=== PATIENT | female | born 1985 | race Caucasian/White ===

== ENCOUNTER 2017-10-31 15:41 | Emergency (ER) | payer MEDICAID ==
[~2017-10-31] VITALS: Ht 167.6 cm; Wt 80.0 kg
[~2017-10-31 15:41] MED LIST: IBUP-232 PO; OXYC1TAB63 PO
[2017-10-31 15:47] VITALS: BP 111/70; PULSE 141; RESP 20; TEMP 97.2; O2SAT 98
--- NOTE | 2017-10-31 16:46 | RADRPT ---
EXAM DATE/TIME: 10/31/2017 16:34 [facility] COMPARISON: No previous studies available for comparison. INDICATIONS : Chest tightness. MEDICAL HISTORY : None. SURGICAL HISTORY : None. ENCOUNTER: Initial ACUITY: 1 day PAIN SCORE: 0/10 LOCATION: Bilateral chest FINDINGS: A single view of the chest demonstrates the lungs to be symmetrically aerated without evidence of mas s, infiltrate or effusion. The cardiomediastinal contours are unremarkable. Osseous structures are intact. CONCLUSION: No acute disease. Nando Mendez MD on October 31, 2017 at 16:44 Board Certified Radiologist. This report was verified electronically.
[2017-10-31 16:47] VITALS: O2SAT 100
[2017-10-31 16:53] LABS: AUTOMATED NEUTROPHIL # 13.5 TH/MM3 (1.8-7.7); BASOPHIL # 0.1 TH/MM3 (0-0.2); BASOPHIL % 0.3 % (0.0-2.0); EOSINOPHIL # 0.2 TH/MM3 (0-0.4); EOSINOPHIL % 0.9 % (0.0-4.0); HEMATOCRIT 35.7 % (35.0-46.0); HEMOGLOBIN 11.6 GM/DL (11.6-15.3); LYMPH % 10.6 % (9.0-44.0); LYMPHOCYTE # 1.7 TH/MM3 (1.0-4.8); MEAN CELL VOLUME 75.4 FL (80.0-100.0); MEAN CORPUSCULAR HEMOGLOBIN 24.5 PG (27.0-34.0); MEAN CORPUSCULAR HGB CONC 32.4 % (32.0-36.0); MEAN PLATELET VOLUME 8.3 FL (7.0-11.0); MONO % 6.5 % (0.0-8.0); MONOCYTE # 1.1 TH/MM3 (0-0.9); NEUT % 81.7 % (16.0-70.0); PLATELET COUNT 499 TH/MM3 (150-450); RED BLOOD COUNT 4.73 MIL/MM3 (4.00-5.30); RED CELL DISTRIBUTION WIDTH 17.1 % (11.6-17.2); WHITE BLOOD COUNT 16.5 TH/MM3 (4.0-11.0)
[2017-10-31] MEDS ORDERED: SODIUM CHLORIDE 0.9% FLUSH 10 ML FLUSH IVF PRN (17:00)
[2017-10-31] MEDS ORDERED: SODIUM CHLOR 0.9% 1000 ML INJ 1,000 ML IV ONE ×2 (17:00→20:45)
[2017-10-31] MEDS ORDERED: RESP: ALBUTEROL 2.5 MG/IPRATROPIUM 0.5 MG NEB (SCH) INH ONE (17:00)
[2017-10-31 17:16] LABS: BICARBONATE 22.8 MEQ/L (21.0-32.0); BLOOD UREA NITROGEN 9 MG/DL (7-18); CALCIUM 9.4 MG/DL (8.5-10.1); CHLORIDE 100 MEQ/L (98-107); CREATININE 0.63 MG/DL (0.50-1.00); GLOMERULAR FILTRATION RATE 110 ML/MIN (>89); GLUCOSE,RANDOM 82 MG/DL (74-106); SODIUM (NA) 133 MEQ/L (136-145)
--- NOTE | 2017-10-31 17:23 | PD ---
HPI Chief Complaint: Cardiac Complaint Time Seen by Provider: 16:42 Travel History International Travel<30 days: No Contact w/Intl Traveler<30days: No Traveled to known affect area: No History of Present Illness HPI 32y female, 30 weeks gravid presents to the emergency department at the request of her etcher enameling from the floor with a sudden onset of shortness of breath and chest tightness that started 3 hours ago. Patient states it feels like a "corset" and she is having difficulty breathing. States no palliative or provocative factors. Says she has associated lightheadedness with her symptoms. Says that she started feeling "hot" while in the waiting room today but denies fevers. She denies cough, congestion or sick contacts. Says that she does have nausea from but she has been more nauseous over the last couple of days in combination with having heartburn. Says she has a history of migraines but has not had a migraine for a while. Denies vaginal bleeding or discharge. Patient does not take any medications or supplements. Denies chronic medical issues. No sick contacts. Says she went to [facility] Friday for feeling "fatigued" where they thought that she may be developing infection. States that she had elevated white blood cells and low potassium and sodium. PFSH Past Medical History Anemia: Yes Anxiety: Yes Depression: Yes Diminished Hearing: No Headaches: Yes Immunizations Current: Yes Migraines: Yes Thyroid Disease: Yes (HYPO) ?: LMP: UNKNOWN : 2 Para: 2 Miscarriage: 0 : 0 Social History Alcohol Use: No Tobacco Use: No Substance Use: No Allergies-Medications (Allergen,Severity, Reaction): Coded Allergies: acetaminophen (Unverified Adverse Reaction, Severe, Nausea/Vomiting, ) hydrocodone (Unverified Adverse Reaction, Severe, Nausea/Vomiting, 10/31/17 ) Reported Meds & Prescriptions Reported Meds & Active Scripts Active No Active Prescriptions or Reported Medications Review of Systems Except as stated in HPI: all other systems reviewed are Neg Physical Exam Narrative GENERAL: Well-developed, well-nourished in mild distress SKIN: Focused skin assessment warm/dry. HEAD: Atraumatic. Normocephalic. EYES: Pupils equal and round. No scleral icterus. No injection or drainage. ENT: No nasal bleeding or discharge. Mucous membranes pink and moist. NECK: Trachea midline. No JVD. CARDIOVASCULAR: Regular rate and rhythm. No murmur appreciated. RESPIRATORY: No accessory muscle use. Clear to auscultation. Breath sounds equal bilaterally. GASTROINTESTINAL: Abdomen gravid. Nontender no CVA tenderness MUSCULOSKELETAL: No obvious deformities. No clubbing. No cyanosis. No edema. Homans sign negative bilaterally NEUROLOGICAL: Awake and alert. No obvious cranial nerve deficits. Motor grossly within normal limits. Normal speech. PSYCHIATRIC: Appropriate mood and affect; insight and judgment normal. Data Data Last Documented VS Vital Signs Date Time Temp Pulse Resp B/P (MAP) Pulse Ox O2 Delivery O2 Flow Rate FiO2 10/31/17 21:32 96 16 111/62 (78) 100 Room Air 10/31/17 15:47 97.2 Orders Orders Electrocardiogram (10/31/17 16:05) Complete Blood Count With Diff (10/31/17 16:05) Basic Metabolic Panel (Bmp) (10/31/17 16:05) Ckmb (Isoenzyme) Profile (10/31/17 16:05) Troponin I (10/31/17 16:05) Chest, Single Ap (10/31/17 16:05) Iv Access Insert/Monitor (10/31/17 16:05) Ecg Monitoring (10/31/17 16:05) Oximetry (10/31/17 16:05) Beta Hcg (Quant/Titer) (10/31/17 16:05) Ed Urine Pregnancytest Poc (10/31/17 16:05) Sodium Chlor 0.9% 1000 Ml Inj (Ns 1000 M (10/31/17 17:00) Urinalysis - C+S If Indicated (10/31/17 16:51) Influenzae A/B Antigen (10/31/17 16:51) Sodium Chloride 0.9% Flush (Ns Flush) (10/31/17 17:00) Albuterol-Ipratropium Neb (Duoneb Neb) (10/31/17 17:00) Act Partial Throm Time (Ptt) (10/31/17 17:21) Prothrombin Time / Inr (Pt) (10/31/17 17:21) Lung Scan - Perfusion (10/31/17 ) Ed Discharge Order (10/31/17 20:15) Sodium Chlor 0.9% 1000 Ml Inj (Ns 1000 M (10/31/17 20:45) Attending Discharge Order (10/31/17 ) Labs Laboratory Tests Test 10/31/17 16:20 10/31/17 17:30 White Blood Count 16.5 TH/MM3 Red Blood Count 4.73 MIL/MM3 Hemoglobin 11.6 GM/DL Hematocrit 35.7 % Mean Corpuscular Volume 75.4 FL Mean Corpuscular Hemoglobin 24.5 PG Mean Corpuscular Hemoglobin Concent 32.4 % Red Cell Distribution Width 17.1 % Platelet Count 499 TH/MM3 Mean Platelet Volume 8.3 FL Neutrophils (%) (Auto) 81.7 % Lymphocytes (%) (Auto) 10.6 % Monocytes (%) (Auto) 6.5 % Eosinophils (%) (Auto) 0.9 % Basophils (%) (Auto) 0.3 % Neutrophils # (Auto) 13.5 TH/MM3 Lymphocytes # (Auto) 1.7 TH/MM3 Monocytes # (Auto) 1.1 TH/MM3 Eosinophils # (Auto) 0.2 TH/MM3 Basophils # (Auto) 0.1 TH/MM3 CBC Comment DIFF FINAL Differential Comment Urine Color YELLOW Urine Turbidity CLEAR Urine pH 6.5 Urine Specific [place] 1.020 Urine Protein TRACE mg/dL Urine Glucose (UA) NEG mg/dL Urine Ketones NEG mg/dL Urine Occult Blood NEG Urine Nitrite NEG Urine Bilirubin NEG Urine Urobilinogen LESS THAN 2.0 MG/DL Urine Leukocyte Esterase TRACE Urine WBC 1 /hpf Urine Squamous Epithelial Cells 8 /hpf Urine Bacteria OCC /hpf Urine Mucus FEW /lpf Microscopic Urinalysis Comment CULT NOT INDICATED Blood Urea Nitrogen 9 MG/DL Creatinine 0.63 MG/DL Random Glucose 82 MG/DL Calcium Level 9.4 MG/DL Sodium Level 133 MEQ/L Potassium Level 3.6 MEQ/L Chloride Level 100 MEQ/L Carbon Dioxide Level 22.8 MEQ/L Anion Gap 10 MEQ/L Estimat Glomerular Filtration Rate 110 ML/MIN Total Creatine Kinase 26 U/L Troponin I LESS THAN 0.02 NG/ML Human Chorionic Gonadotropin, Quant 90975 MIU/ML Prothrombin Time 10.2 SEC Prothromb Time International Ratio 1.0 RATIO Activated Partial Thromboplast Time 23.0 SEC MDM Medical Decision Making Medical Screen Exam Complete: Yes Emergency Medical Condition: Yes Differential Diagnosis Pulmonary embolism, pneumonia, asthma, bronchitis Narrative Course 32y female, 30 weeks gravid presents to the emergency department at the request of her etcher enameling from the floor with a sudden onset of shortness of breath and chest tightness that started 3 hours ago. Patient states it feels like a "corset" and she is having difficulty breathing. States no palliative or provocative factors. Says she has associated lightheadedness with her symptoms. Says that she started feeling "hot" while in the waiting room today but denies fevers. She denies cough, congestion or sick contacts. Says that she does have nausea from but she has been more nauseous over the last couple of days in combination with having heartburn. Says she has a history of migraines but has not had a migraine for a while. Denies vaginal bleeding or discharge. Patient does not take any medications or supplements. Denies chronic medical issues. No sick contacts. Says she went to [facility] Friday for feeling "fatigued" where they thought that she may be developing infection. States that she had elevated white blood cells and low potassium and sodium. EKG shows sinus tachycardia, ID interval .100 Labs and imaging studies ordered. 1L NS IVF administered. DuoNeb 1 administered. Minimal relief after treatment. I discussed with my attending the treatment plan. Although the final disposition will be with the oncoming physician, we believe that if the VQ is of low probability, she is safe to be discharged home. If intermittent, consider CT pulmonary angiogram. If high probability, will treat. VQ pending as of transfer of care to Dr. Chatterjee. Scripts No Active Prescriptions or Reported Meds Condition: Stable Deisi Delgado Oct 31, 2017 17:23
[2017-10-31 17:31] VITALS: BP 103/71; PULSE 102; RESP 18; O2SAT 100
[2017-10-31 17:32] LABS: TROPONIN I LESS THAN 0.02 NG/ML (0.02-0.05)
[2017-10-31 17:58] LABS: BACTERIA, URINE OCC /hpf; BILIRUBIN, URINE NEG (NEG); BLOOD, URINE NEG (NEG); GLUCOSE,URINE NEG (NEG); KETONE, URINE NEG (NEG); MUCUS URINE FEW /lpf (OCC); NITRITE,URINE NEG (NEG); PH, URINE 6.5 (5.0-8.5); SQUAMOUS EPITHELIAL CELL URINE 8 /hpf (0-5); URINE COLOR YELLOW (YELLW/STRAW); URINE LEUKOCYTE ESTERASE TRACE (NEG)
[2017-10-31 18:12] LABS: PROTHROMBIN TIME - PATIENT 10.2 SEC (9.8-11.6)
--- NOTE | 2017-10-31 19:48 | RADRPT ---
EXAM DATE/TIME: 10/31/2017 18:57 [facility] COMPARISON: No previous studies available for comparison. INDICATIONS : Chest pain with dyspnea. DOSE: 1.1 mCi Tc99m Labeled MAA IV MEDICAL HISTORY : Hypothyroidism. SURGICAL HISTORY : None. ENCOUNTER: Initial ACUITY: 1 day PAIN SCALE: 3/10 LOCATION: chest TECHNIQUE: The patient was injected with MAA, and eight-view perfusion scan was performed. patient. Pat ient was counseled prior to the study and all questions answered. Only perfusion was done and that olvera lf the dose. FINDINGS: PERFUSION: There is a homogenous pattern of radiotracer uptake throughout both lungs. CONCLUSION: Normal pulmonary perfusion. Tay Sullivan MD on October 31, 2017 at 19:46 Board Certified Radiologist. This report was verified electronically.
--- NOTE | 2017-10-31 20:20 | PD ---
Physical Exam Narrative Patient was signed out to me by EDWARD Delgado and Dr. Mederos. Please see there documentation for complete details. Briefly, patient is a 32 year old female, 30 weeks , who comes in complaining of chest tightness and SOB. She is also experiencing some abdominal discomfort. She denies any bleeding or leakage of fluids. She says she has been feeling a little worn out this week, but hasn't had any other specific symptoms. She says she experienced SOB in her prior as her abdomen got bigger, but this seems to be worse. Exam shows lungs CTA. Heart is RRR. Data Data Last Documented VS Vital Signs Date Time Temp Pulse Resp B/P (MAP) Pulse Ox O2 Delivery O2 Flow Rate FiO2 10/31/17 17:31 102 18 103/71 (82) 100 Room Air 10/31/17 15:47 97.2 Orders Orders Electrocardiogram (10/31/17 16:05) Complete Blood Count With Diff (10/31/17 16:05) Basic Metabolic Panel (Bmp) (10/31/17 16:05) Ckmb (Isoenzyme) Profile (10/31/17 16:05) Troponin I (10/31/17 16:05) Chest, Single Ap (10/31/17 16:05) Iv Access Insert/Monitor (10/31/17 16:05) Ecg Monitoring (10/31/17 16:05) Oximetry (10/31/17 16:05) Beta Hcg (Quant/Titer) (10/31/17 16:05) Ed Urine Pregnancytest Poc (10/31/17 16:05) Sodium Chlor 0.9% 1000 Ml Inj (Ns 1000 M (10/31/17 17:00) Urinalysis - C+S If Indicated (10/31/17 16:51) Influenzae A/B Antigen (10/31/17 16:51) Sodium Chloride 0.9% Flush (Ns Flush) (10/31/17 17:00) Albuterol-Ipratropium Neb (Duoneb Neb) (10/31/17 17:00) Act Partial Throm Time (Ptt) (10/31/17 17:21) Prothrombin Time / Inr (Pt) (10/31/17 17:21) Lung Scan - Perfusion (10/31/17 ) Ed Discharge Order (10/31/17 20:15) Labs Laboratory Tests Test 10/31/17 16:20 10/31/17 17:30 White Blood Count 16.5 TH/MM3 Red Blood Count 4.73 MIL/MM3 Hemoglobin 11.6 GM/DL Hematocrit 35.7 % Mean Corpuscular Volume 75.4 FL Mean Corpuscular Hemoglobin 24.5 PG Mean Corpuscular Hemoglobin Concent 32.4 % Red Cell Distribution Width 17.1 % Platelet Count 499 TH/MM3 Mean Platelet Volume 8.3 FL Neutrophils (%) (Auto) 81.7 % Lymphocytes (%) (Auto) 10.6 % Monocytes (%) (Auto) 6.5 % Eosinophils (%) (Auto) 0.9 % Basophils (%) (Auto) 0.3 % Neutrophils # (Auto) 13.5 TH/MM3 Lymphocytes # (Auto) 1.7 TH/MM3 Monocytes # (Auto) 1.1 TH/MM3 Eosinophils # (Auto) 0.2 TH/MM3 Basophils # (Auto) 0.1 TH/MM3 CBC Comment DIFF FINAL Differential Comment Urine Color YELLOW Urine Turbidity CLEAR Urine pH 6.5 Urine Specific [place] 1.020 Urine Protein TRACE mg/dL Urine Glucose (UA) NEG mg/dL Urine Ketones NEG mg/dL Urine Occult Blood NEG Urine Nitrite NEG Urine Bilirubin NEG Urine Urobilinogen LESS THAN 2.0 MG/DL Urine Leukocyte Esterase TRACE Urine WBC 1 /hpf Urine Squamous Epithelial Cells 8 /hpf Urine Bacteria OCC /hpf Urine Mucus FEW /lpf Microscopic Urinalysis Comment CULT NOT INDICATED Blood Urea Nitrogen 9 MG/DL Creatinine 0.63 MG/DL Random Glucose 82 MG/DL Calcium Level 9.4 MG/DL Sodium Level 133 MEQ/L Potassium Level 3.6 MEQ/L Chloride Level 100 MEQ/L Carbon Dioxide Level 22.8 MEQ/L Anion Gap 10 MEQ/L Estimat Glomerular Filtration Rate 110 ML/MIN Total Creatine Kinase 26 U/L Troponin I LESS THAN 0.02 NG/ML Human Chorionic Gonadotropin, Quant 21370 MIU/ML Prothrombin Time 10.2 SEC Prothromb Time International Ratio 1.0 RATIO Activated Partial Thromboplast Time 23.0 SEC [facility] Supervised Visit with RODGER: No Narrative Course Labs show an elevated WBC count, likely due to the itself. Other labs are within normal limits. CXR shows no acute abnormalities. V/Q scan is low probability for PE. Last 24 hours Impressions Chest X-Ray 10/31/17 1605 Signed Impressions: Service Date/Time: Tuesday, October 31, 2017 16:34 - CONCLUSION: No acute disease. Nando Mendez MD Lung Scan Nuclear Medicine 10/31/17 0000 Signed Impressions: Service Date/Time: Tuesday, October 31, 2017 18:57 - CONCLUSION: Normal pulmonary perfusion. Tay Sullivan MD Patient will be discharged and sent to OB triage for evaluation of the . Advised to follow up with her doctors and return as needed for any worsening symptoms. Diagnosis Primary Impression: SOB (shortness of breath) Patient Instructions: General Instructions, Shortness of Breath (ED) Additional Instruction: Follow-up with OB. Return anytime for any worsening symptoms. Make sure you drink plenty of fluids and rest. Take Tylenol as needed for pain. Scripts No Active Prescriptions or Reported Meds Disposition: 01 DISCHARGE HOME Condition: Stable Valeria Chatterjee MD Oct 31, 2017 20:20
[2017-10-31 20:40] VITALS: BP 89/51; PULSE 101; RESP 16; O2SAT 100
[2017-10-31 21:32] VITALS: BP 111/62; PULSE 96; RESP 16; O2SAT 100
--- NOTE | 2017-10-31 22:58 | PD ---
HPI Chief Complaint Chest tightness, shortness of breath Date Seen: Oct 31, 2017 Time Seen: 22:50 Travel History International Travel<30 Days: No Contact w/Intl Traveler<30Days: No Known Affected Area: No History of Present Illness HPI Patient is 32-year-old white female at [address] Clemens for care and presents complaining of chest tightness and shortness of breath she felt that she "could not catch her breath". She had no obstetric complaint baby is active no bleeding, leakage of fluid, or significant abdominal pain. She states she was having this chest discomfort for 2 hours at home and ingested would not get better so she came to the hospital and she has been down in the emergency room all afternoon and evening getting her workup done. She has had a negative VQ scan, and negative workup for TN, all other testing was within normal limits and she has been sent to OB ED to have monitoring Weeks Gestation: 29 Para: 3 : 4 History Obstetric History Obstetric History 3 vaginal deliveries in the past Social History Alcohol Use: No Tobacco Use: No Substance Abuse: No Allergies-Medications (Allergen,Severity, Reaction): Coded Allergies: acetaminophen (Unverified Adverse Reaction, Severe, Nausea/Vomiting, ) hydrocodone (Unverified Adverse Reaction, Severe, Nausea/Vomiting, 10/31/17 ) Home Meds Discontinued Scripts Oxycodone-Acetaminophen (Oxycodone-Acetaminophen) 5-325 mg Tab, 1 TAB PO Q4H for moderate pain, #12 TAB Prov:Ashlee Clemens MD 07/11/16 Ibuprofen (Ibuprofen) 600 Mg Tab, 600 MG PO Q6H for Pain Management, #30 TAB 1 Refill Prov:Ashlee Clemens MD 07/11/16 Review of Systems General / Constitutional: No: Fever, Weight Gain, Chills, Other Eyes: No: Diploplia, Blurred Vision, Visual changes, Pain, Photophobia HENT: No: Headaches, Vertigo, Lightheadedness Cardiovascular: Chest Pain or Discomfort, No: Irregular Rhythm, Palpitations, Tachycardia, Syncope, Varicosities, Edema, Cyanosis Respiratory: Short of Breath, No: Cough, Other Gastrointestinal: No: Nausea, Vomiting, Diarrhea Genitourinary: No: Decreased Urinary Output, Oliguria Musculoskeletal: No: Limited ROM, Weakness, Cramping, Edema, Pain Skin: No Rash, No Itching, No Dryness, No Lumps, No Change in Pigmentation, No Change in Nails, No Alopecia, No Lesions Neurologic: No: Weakness, Dizziness, Syncope, Focal Abnormalities, Coordination Problem, Headache, Slurred Speech, Seizures Psychiatric: No: Depression, Suicidal Ideations, Homicidal Ideation Endocrine: No: Heat Intolerance, Cold Intolerance, Polydipsia, Polyuria, Other Physical Exam Vital Signs Date Time Temp Pulse Resp B/P (MAP) Pulse Ox O2 Delivery O2 Flow Rate FiO2 10/31/17 21:32 96 16 111/62 (78) 100 Room Air 10/31/17 20:40 101 16 89/51 (64) 100 Room Air 10/31/17 20:22 10/31/17 17:31 102 18 103/71 (82) 100 Room Air 10/31/17 16:49 100 Room Air 10/31/17 16:47 100 Room Air 10/31/17 16:47 100 Room Air 10/31/17 15:47 97.2 141 20 111/70 (84) 98 Narrative GENERAL: Well-nourished, well-developed patient. SKIN: Warm and dry. HEAD: Normocephalic and atraumatic. EYES: No scleral icterus. No injection or drainage. ENT: No nasal drainage noted. Mucous membranes pink. Airway patent. NECK: Supple, trachea midline. No JVD. CARDIOVASCULAR: Regular rate and rhythm without murmurs, gallops, or rubs. RESPIRATORY: Breath sounds equal bilaterally. No accessory muscle use. BREASTS: Bilateral exam showed no masses , no retractions, no nipple discharge. ABDOMEN/GI: Abdomen soft, non-tender, bowel sounds present, no rebound, no guarding Gravid to [29-] weeks size Fundal Height: [29-] GENITOURINARY: Membranes: [intact Uterine Contractions: [none-] FHT's: Category: [-1] Baseline: [-133] Reactive: [R-] Variability: [-mod] Decels: [none-] EXTREMITIES: No cyanosis or edema. BACK: Nontender without obvious deformity. No CVA tenderness. NEUROLOGICAL: Awake and alert. Motor and sensory grossly within normal limits. Five out of 5 muscle strength in all muscle groups. Normal speech. Data Data Orders Orders Electrocardiogram (10/31/17 16:05) Complete Blood Count With Diff (10/31/17 16:05) Basic Metabolic Panel (Bmp) (10/31/17 16:05) Ckmb (Isoenzyme) Profile (10/31/17 16:05) Troponin I (10/31/17 16:05) Chest, Single Ap (10/31/17 16:05) Iv Access Insert/Monitor (10/31/17 16:05) Ecg Monitoring (10/31/17 16:05) Oximetry (10/31/17 16:05) Beta Hcg (Quant/Titer) (10/31/17 16:05) Ed Urine Pregnancytest Poc (10/31/17 16:05) Sodium Chlor 0.9% 1000 Ml Inj (Ns 1000 M (10/31/17 17:00) Urinalysis - C+S If Indicated (10/31/17 16:51) Influenzae A/B Antigen (10/31/17 16:51) Sodium Chloride 0.9% Flush (Ns Flush) (10/31/17 17:00) Albuterol-Ipratropium Neb (Duoneb Neb) (10/31/17 17:00) Act Partial Throm Time (Ptt) (10/31/17 17:21) Prothrombin Time / Inr (Pt) (10/31/17 17:21) Lung Scan - Perfusion (10/31/17 ) Ed Discharge Order (10/31/17 20:15) Sodium Chlor 0.9% 1000 Ml Inj (Ns 1000 M (10/31/17 20:45) Labs Laboratory Tests Test 10/31/17 16:20 10/31/17 17:30 White Blood Count 16.5 Red Blood Count 4.73 Hemoglobin 11.6 Hematocrit 35.7 Mean Corpuscular Volume 75.4 Mean Corpuscular Hemoglobin 24.5 Mean Corpuscular Hemoglobin Concent 32.4 Red Cell Distribution Width 17.1 Platelet Count 499 Mean Platelet Volume 8.3 Neutrophils (%) (Auto) 81.7 Lymphocytes (%) (Auto) 10.6 Monocytes (%) (Auto) 6.5 Eosinophils (%) (Auto) 0.9 Basophils (%) (Auto) 0.3 Neutrophils # (Auto) 13.5 Lymphocytes # (Auto) 1.7 Monocytes # (Auto) 1.1 Eosinophils # (Auto) 0.2 Basophils # (Auto) 0.1 CBC Comment DIFF FINAL Differential Comment Urine Color YELLOW Urine Turbidity CLEAR Urine pH 6.5 Urine Specific [place] 1.020 Urine Protein TRACE Urine Glucose (UA) NEG Urine Ketones NEG Urine Occult Blood NEG Urine Nitrite NEG Urine Bilirubin NEG Urine Urobilinogen LESS THAN 2.0 Urine Leukocyte Esterase TRACE Urine WBC 1 Urine Squamous Epithelial Cells 8 Urine Bacteria OCC Urine Mucus FEW Microscopic Urinalysis Comment CULT NOT INDICATED Blood Urea Nitrogen 9 Creatinine 0.63 Random Glucose 82 Calcium Level 9.4 Sodium Level 133 Potassium Level 3.6 Chloride Level 100 Carbon Dioxide Level 22.8 Anion Gap 10 Estimat Glomerular Filtration Rate 110 Total Creatine Kinase 26 Troponin I LESS THAN 0.02 Human Chorionic Gonadotropin, Quant [id number] Prothrombin Time 10.2 Prothromb Time International Ratio 1.0 Activated Partial Thromboplast Time 23.0 Date/Time Source Procedure Growth Status 10/31/17 17:35 Nasal Aspirate Influenza Types A,B Antigen (RICARDO) - Final NEGATIVE FOR FLU A AND B ANTIGEN.... Complete MDM Interpretation(s) Patient is 32-year-old white female 29 weeks who presented with chest tightness and discomfort with shortness of breath. She has never had a history of this kind of problem before. She has had an extensive workup done in the emergency room to rule out PE and TN and all workup is negative, she is now on OB ED for monitoring and that he was within normal limits with a reactive strip and no contractions Plan Plan to discharge patient home to bedrest, follow up with Dr. Clemens Diagnosis Diagnosis: Primary Impression: SOB (shortness of breath) Additional Impressions: Tightness in chest 29 weeks gestation of Disposition: 01 DISCHARGE HOME Condition: Stable Scripts No Active Prescriptions or Reported Meds Patient Instructions: General Instructions, Shortness of Breath (ED) Additional Instructions: Follow-up with OB. Return anytime for any worsening symptoms. Make sure you drink plenty of fluids and rest. Take Tylenol as needed for pain. Departure Forms: Tests/Procedures Shekhar Bartholomew II, MD Oct 31, 2017 22:58
--- NOTE | 2017-11-01 18:11 | EKG ---
Date Performed: 10/31/2017 Time Performed: 16:26:38 PTAGE: 32 years EKG: SINUS TACHYCARDIA LOW QRS VOLTAGE IN PRECORDIAL LEADS PROBABLY WITHIN NORMAL LIMITS FOR AGE NORMAL RHYTHM ECG Compared to PREVIOUS TRACING , other than heart rate, no significant change. PREVIOUS TRACIN2015 20.27 DOCTOR: Robby Lopez Interpretating Date/Time 11/01/2017 18:10:29
== END 2017-10-31 22:58 | disposition home or self-care (01) ==
LOC: NEPC 15:41 → HOBED 22:58
DX: O26.893 Other specified pregnancy related conditions, third trimester (principal); R06.02 Shortness of breath; R07.89 Other chest pain; R42 Dizziness and giddiness; Z3A.29 29 weeks gestation of pregnancy
CPT/HCPCS: 71045; 78580; 80048; 81001; 82550; 84484; 84702; 84703; 85025; 85610; 85730; 87804; 93005; 94664; 96360; 96361; 99285; A9540; J7030

== ENCOUNTER 2017-11-04 16:21 | Emergency (ER) | payer MEDICAID ==
[2017-11-04] MEDS ORDERED: LACTATED RINGER'S 1000 ML INJ 1,000 ML IV SCH (18:42)
[2017-11-04 19:27] LABS: ALBUMIN 2.6 GM/DL (3.4-5.0); AST (GOT) 14 U/L (15-37); BICARBONATE 20.8 MEQ/L (21.0-32.0); BLOOD UREA NITROGEN 6 MG/DL (7-18); CALCIUM 8.2 MG/DL (8.5-10.1); CHLORIDE 104 MEQ/L (98-107); CREATININE 0.53 MG/DL (0.50-1.00); GLOMERULAR FILTRATION RATE 135 ML/MIN (>89); GLUCOSE,RANDOM 82 MG/DL (74-106); MAGNESIUM 1.9 MG/DL (1.5-2.5); SODIUM (NA) 136 MEQ/L (136-145)
[2017-11-04 19:28] LABS: ALT (GPT) 11 U/L (10-53)
[2017-11-04 19:30] LABS: ALKALINE PHOSPHATASE 107 U/L (45-117); TOTAL BILIRUBIN ADULT 0.3 MG/DL (0.2-1.0); TOTAL PROTEIN 6.9 GM/DL (6.4-8.2)
[2017-11-04 19:34] LABS: HEMATOCRIT 31.7 % (35.0-46.0); MEAN CELL VOLUME 77.5 FL (80.0-100.0); MEAN CORPUSCULAR HEMOGLOBIN 24.5 PG (27.0-34.0); MEAN CORPUSCULAR HGB CONC 31.6 % (32.0-36.0); MEAN PLATELET VOLUME 8.5 FL (7.0-11.0); PLATELET COUNT 373 TH/MM3 (150-450); RED BLOOD COUNT 4.09 MIL/MM3 (4.00-5.30); RED CELL DISTRIBUTION WIDTH 17.2 % (11.6-17.2); WHITE BLOOD COUNT 14.2 TH/MM3 (4.0-11.0)
--- NOTE | 2017-11-04 19:54 | PD ---
HPI Chief Complaint Nausea, vomiting, diarrhea Travel History International Travel<30 Days: No Contact w/Intl Traveler<30Days: No Known Affected Area: No History of Present Illness HPI 32-year-old 003, IUP at 30.1 care uncomplicated per patient report The patient presents complaining of nausea and vomiting for 1 week and diarrhea for approximately 4 days. She reports that she was seen here on 10/29 and 10/31. She was seen in the office today and received Zofran IM at approximately 4 PM. She is tolerating small amounts of by mouth since arriving. She denies any ill contacts. She denies any fever or chills. She denies ingestion of any suspect foods. She denies any leaking of fluid or vaginal bleeding. She denies any contractions or painful cramping. She reports good movement. She has had no vomiting or diarrhea since arriving. She reports that her diarrhea has decreased with only 1 episode this morning that had a thicker consistency than prior. She reports boxing 3 episodes yesterday. She reports that when she initially started having diarrhea it was watery however has regained consistency. There've been no attempted treatments Weeks Gestation: 30 Para: 3 : 4 History Past Medical History Narrative Medical Migraine headache Obstetric History Obstetric History 003 3 Past Surgical History Narrative Surgical D&C, diagnostic laparoscopy Family History Narrative Family History Noncontributory Social History Alcohol Use: No Tobacco Use: No Substance Abuse: No Allergies-Medications (Allergen,Severity, Reaction): Coded Allergies: acetaminophen (Unverified Adverse Reaction, Severe, Nausea/Vomiting, ) hydrocodone (Unverified Adverse Reaction, Severe, Nausea/Vomiting, 10/31/17 ) Home Meds Discontinued Scripts Oxycodone-Acetaminophen (Oxycodone-Acetaminophen) 5-325 mg Tab, 1 TAB PO Q4H for moderate pain, #12 TAB Prov:Ashlee Clemens MD 07/11/16 Ibuprofen (Ibuprofen) 600 Mg Tab, 600 MG PO Q6H for Pain Management, #30 TAB 1 Refill Prov:Ashlee Clemens MD 07/11/16 Review of Systems Except as stated in HPI: all other systems reviewed are Neg Gastrointestinal: Nausea, Vomiting, Diarrhea Physical Exam Narrative GENERAL: Well-nourished, well-developed patient. SKIN: Warm and dry. HEAD: Normocephalic and atraumatic. EYES: No scleral icterus. No injection or drainage. ENT: No nasal drainage noted. Mucous membranes pink. Airway patent. NECK: Supple, trachea midline. No JVD. CARDIOVASCULAR: Regular rate and rhythm without murmurs, gallops, or rubs. RESPIRATORY: Breath sounds equal bilaterally. No accessory muscle use. BREASTS: Deferred ABDOMEN/GI: Abdomen soft, non-tender, bowel sounds present, no rebound, no guarding Gravid GENITOURINARY: Deferred FHT's: heart tones are in the 120s with moderate long-term variability, good accelerations, no decelerations noted. This a category 1 heart rate tracing and a reactive NST. EXTREMITIES: No cyanosis or edema. BACK: Nontender without obvious deformity. NEUROLOGICAL/musculoskeletal: Awake and alert. Motor and sensory grossly within normal limits. Grossly normal Five out of 5 muscle strength in all muscle groups. Normal speech. Grossly normal range of motion, gait Psychiatric: Grossly normal memory and affect Data Data Orders Orders Vital Signs (Adult) .ON ADMISSION (11/04/17 18:42) ^ Labor Status (11/04/17 18:42) Urinalysis - C+S If Indicated (11/04/17 18:42) ^ Non Stress Test (11/04/17 18:42) Cbc No Diff, Includes Plts (11/04/17 18:42) Comprehensive Metabolic Panel (11/04/17 18:42) Lactated Ringer's 1000 Ml Inj (Lr 1000 M (11/04/17 18:42) Magnesium (Mg) (11/04/17 18:42) Amylase (11/04/17 18:42) Lipase (11/04/17 18:42) Labs Laboratory Tests Test 11/04/17 16:00 White Blood Count 14.2 Red Blood Count 4.09 Hemoglobin 10.0 Hematocrit 31.7 Mean Corpuscular Volume 77.5 Mean Corpuscular Hemoglobin 24.5 Mean Corpuscular Hemoglobin Concent 31.6 Red Cell Distribution Width 17.2 Platelet Count 373 Mean Platelet Volume 8.5 Blood Urea Nitrogen 6 Creatinine 0.53 Random Glucose 82 Total Protein 6.9 Albumin 2.6 Calcium Level 8.2 Magnesium Level 1.9 Alkaline Phosphatase 107 Aspartate Amino Transf (AST/SGOT) 14 Alanine Aminotransferase (ALT/SGPT) 11 Total Bilirubin 0.3 Sodium Level 136 Potassium Level 3.7 Chloride Level 104 Carbon Dioxide Level 20.8 Anion Gap 11 Estimat Glomerular Filtration Rate 135 Amylase Level 32 Lipase 93 MDM Plan Assessment/plan: 1. IUP at 30.1 2. Nausea/vomiting/diarrhea: May be a gastroenteritis, appears to be improving. Discussed stool studies however patient has been unable to produce a stool specimen here. She is to contact Dr. Clemens's office for further instructions if she or return if she continues to have loose stools. She's been able to tolerate a small by mouth challenge here. She reports she feels significantly better after receiving 2 L of IV fluids. She's had no emesis here. Her laboratory studies were overall normal with the exception of a mild leukocytosis. Rx given for Zofran 4 mg ODT. No evidence of pancreatitis or other serious etiology at this time. Recommended BRAT diet. 3. Mild leukocytosis.: Patient was instructed to follow up with Dr. Clemens in 1-2 days 4. well-being: Reassuring testing with reactive NST and category 1 heart rate tracing. heart rate is reassuring and appropriate for gestational age. kick counts daily 5. Rx given for Vistaril to help with rest in the short interim, Rx given for 25 mg to take one to 2 by mouth daily at bedtime when necessary sleep 6. Follow up with Dr. Clemens in 1-2 days or sooner if needed Diagnosis Diagnosis: Primary Impression: 30 weeks gestation of Additional Impression: Gastroenteritis Disposition: 01 DISCHARGE HOME Condition: Good Scripts No Active Prescriptions or Reported Meds Patient Instructions: General Instructions, Nausea and Vomiting in ( ED), Movement (ED) Departure Forms: Tests/Procedures Marcy Tucker MD Nov 04, 2017 19:54
[2017-11-04 20:17] LABS: AMORPHOUS SEDIMENT, URINE RARE; BACTERIA, URINE MANY /hpf; BILIRUBIN, URINE NEG (NEG); BLOOD, URINE NEG (NEG); GLUCOSE,URINE TRACE mg/dL (NEG); KETONE, URINE NEG (NEG); MUCUS URINE MANY /lpf (OCC); NITRITE,URINE NEG (NEG); PH, URINE 6.5 (5.0-8.5); SQUAMOUS EPITHELIAL CELL URINE 60 /hpf (0-5); URINE COLOR YELLOW (YELLW/STRAW); URINE LEUKOCYTE ESTERASE LARGE (NEG)
== END 2017-11-04 19:55 | disposition home or self-care (01) ==
LOC: HOBED 16:21
DX: O99.613 Diseases of the digestive system complicating pregnancy, third trimester (principal); K52.9 Noninfective gastroenteritis and colitis, unspecified; Z3A.30 30 weeks gestation of pregnancy
CPT/HCPCS: 80053; 81001; 82150; 83690; 83735; 85027; 87086; 96360; 96361

== ENCOUNTER 2017-12-24 17:35 | Emergency (ER) | payer MEDICAID ==
[2017-12-24] MEDS ORDERED: ACETAMIN 325 MG/BUTALBITAL 50 MG/CAFFEINE 40 MG TAB PO ONE (19:45)
--- NOTE | 2017-12-24 19:46 | PD ---
HPI Chief Complaint LOF Travel History International Travel<30 Days: No Contact w/Intl Traveler<30Days: No Known Affected Area: No History of Present Illness HPI 32-year-old 003, IUP at 37.2 care complicated by migraine headaches The patient presents complaining of occasional abdominal tightness but denies any painful contractions. She reports these are irregular. There are no attempted treatments. There are no aggravating factors. She also presents believing she is having some leaking of fluid. She believes it is not urine. She reports it is has been a small amount and she has not used pad. She reports that she was seen in her OB office yesterday and the baby was noted to be in breech presentation with what she reports initially a low GIL however upon repeat it was 7. She denies any large gush of fluid. She denies any vaginal bleeding. She reports good movement. She reports she has been having a migraine headache today. Weeks Gestation: 37 Para: 3 : 4 History Past Medical History Narrative Medical Migraine headaches Obstetric History Obstetric History 003 3 Past Surgical History Narrative Surgical D&C, laparoscopy Family History Narrative Family History Hypertension Social History Alcohol Use: No Tobacco Use: No Substance Abuse: No Allergies-Medications (Allergen,Severity, Reaction): Coded Allergies: acetaminophen (Unverified Adverse Reaction, Severe, Nausea/Vomiting, ) hydrocodone (Unverified Adverse Reaction, Severe, Nausea/Vomiting, 10/31/17 ) Home Meds No Active Prescriptions or Reported Meds Review of Systems Except as stated in HPI: all other systems reviewed are Neg Physical Exam Narrative GENERAL: Well-nourished, well-developed patient. SKIN: Warm and dry. HEAD: Normocephalic and atraumatic. EYES: No scleral icterus. No injection or drainage. ENT: No nasal drainage noted. Mucous membranes pink. Airway patent. NECK: Supple, trachea midline. No JVD. CARDIOVASCULAR: Regular rate and rhythm without murmurs, gallops, or rubs. RESPIRATORY: Breath sounds equal bilaterally. No accessory muscle use. BREASTS: Deferred ABDOMEN/GI: Abdomen soft, non-tender, bowel sounds present, no rebound, no guarding Gravid GENITOURINARY: External Genitalia: intact and normal in appearance. Normal BUS. No cervical or vaginal masses noted. Physiologic discharge noted. Grossly normal gait. Examination are negative. SVE closed at the internal loss, thick/high/ posterior FHT's: heart tones are in the 140s with moderate long-term variability, good accelerations, no decelerations noted. This is a reactive NST and a category 1 heart rate tracing category 1 tracing. EXTREMITIES: No cyanosis or edema. BACK: Nontender without obvious deformity. NEUROLOGICAL: Awake and alert. Motor and sensory grossly within normal limits. Normal speech. Musculoskeletal: Grossly normal range of motion, gait, muscle strength Psychiatric: Grossly normal memory and affect Data Data Orders Orders Vital Signs (Adult) .ON ADMISSION (12/24/17 19:38) ^ Labor Status (12/24/17 19:38) ^ Non Stress Test (12/24/17 19:38) Pamg-1 Test .ONCE (12/24/17 19:38) Zujj-Abdpt-Pzlj 325-50-40 Mg (Fioricet 3 (12/24/17 19:45) MDM Plan Assessment/plan: 1. IUP at 37 weeks 2. Breech presentation 3. Leaking of fluid: There is no evidence of rupture of membranes with negative family sure and physiologic discharge. Strict PPROM precautions. Normal GIL on biophysical profile. 4. No evidence of active labor, labor precautions 5. testing: Reassuring testing with reactive NST and BPP 10 /10. kick counts daily 6. Migraine headaches: Patient was given Fioricet 2 for her migraine headache. She reports that she is allergic to Lortab but not to Tylenol. 7. Follow-up with OB in 1 day as scheduled or sooner if needed. Diagnosis Diagnosis: Primary Impression: 37 weeks gestation of Additional Impressions: False labor Breech presentation Migraine Disposition: 01 DISCHARGE HOME Condition: Good Scripts No Active Prescriptions or Reported Meds Patient Instructions: General Instructions, Movement (ED), Abdominal Pain in (ED) Additional Instructions: DRINK PLENTY OF WATER DURING THE DAY, RETURN IF LEAKING FLUID, STRONG CONTRACTIONS, DECREASE IN MOVEMENT OR VAGINAL BLEEDING. FOLLOW UP WITH YOUR OB DR AND KEEP ALL UPCOMING OB APPTS. Departure Forms: Tests/Procedures Marcy Tucker MD December 24, 2017 19:46
[2017-12-24] MEDS ORDERED: CITRIC ACID-SODIUM CITRATE LIQ 30 ML UDC ONE (19:49)
--- NOTE | 2017-12-24 19:49 | PD ---
History of Present Illness History of Present Illness NST/BPP report Indications: IUP at 37 weeks, breech presentation, questionable low GIL yesterday but normal on repeat, history of migraine headaches, leaking of fluid NST: heart rate is in the 140s with moderate long-term variability, good accelerations, no decelerations noted. This is a category 1 heart rate tracing a reactive NST Biophysical profile: There are numerous gross body movements, multiple episodes of flexion-extension, greater than 30 seconds breathing movement, and GIL of 12.60 with one pocket 5.68 cm. GIL 3.53/5 0.68/1 0.33/2.12. Final diagnosis: IUP at 37 weeks, migraine headache, breech presentation, reassuring testing with BPP 05/27, no evidence of rupture of membranes or labor Follow-up: Follow-up with primary OB in 1 day as scheduled or sooner if needed Marcy Tucker MD December 24, 2017 19:49
== END 2017-12-24 20:30 | disposition home or self-care (01) ==
LOC: HOBED 17:35
DX: O47.1 False labor at or after 37 completed weeks of gestation (principal); O32.1XX0 Maternal care for breech presentation, not applicable or unspecified; O99.353 Diseases of the nervous system complicating pregnancy, third trimester; G43.909 Migraine, unspecified, not intractable, without status migrainosus; Z3A.37 37 weeks gestation of pregnancy
CPT/HCPCS: 76815; 84112

== ENCOUNTER 2017-12-31 12:00 | Inpatient (IN) | payer MEDICAID ==
[~2017-12-31] VITALS: Ht 170.2 cm; Wt 78.0 kg
[2018-01-06 12:53] LABS: AUTOMATED NEUTROPHIL # 9.7 TH/MM3 (1.8-7.7); BASOPHIL # 0.1 TH/MM3 (0-0.2); BASOPHIL % 0.6 % (0.0-2.0); EOSINOPHIL # 0.1 TH/MM3 (0-0.4); EOSINOPHIL % 0.8 % (0.0-4.0); HEMATOCRIT 29.1 % (35.0-46.0); LYMPH % 13.4 % (9.0-44.0); LYMPHOCYTE # 1.7 TH/MM3 (1.0-4.8); MEAN CELL VOLUME 66.8 FL (80.0-100.0); MEAN CORPUSCULAR HEMOGLOBIN 20.6 PG (27.0-34.0); MEAN CORPUSCULAR HGB CONC 30.8 % (32.0-36.0); MEAN PLATELET VOLUME 9.1 FL (7.0-11.0); MONO % 7.3 % (0.0-8.0); MONOCYTE # 0.9 TH/MM3 (0-0.9); NEUT % 77.9 % (16.0-70.0); PLATELET COUNT 381 TH/MM3 (150-450); RED BLOOD COUNT 4.35 MIL/MM3 (4.00-5.30); RED CELL DISTRIBUTION WIDTH 20.7 % (11.6-17.2); WHITE BLOOD COUNT 12.5 TH/MM3 (4.0-11.0)
[2018-01-06] MEDS ORDERED: LACTATED RINGER'S 1000 ML IV SCH (13:15)
[2018-01-06] MEDS ORDERED: CITRIC ACID-SODIUM CITRATE LIQ 30 ML UDC PO SCH (13:15)
[2018-01-06] MEDS ORDERED: ceFAZolin 2 GM PREMIX 50 ML IV SCH (13:15)
[2018-01-06] MEDS ORDERED: LACTATED RINGER'S 1000 ML IV ONE (13:15)
[2018-01-06] MEDS ORDERED: ACETAMINOPHEN 1000 MG/100 ML 100 ML IV ONE ×2 (13:34→15:30)
[2018-01-06] MEDS ORDERED: MORPHINE SULFATE PF 5 MG/10 ML VIAL ONE (13:34)
[2018-01-06] MEDS ORDERED: MORPHINE SULFATE 4 MG/ML INJ ONE (15:17)
[2018-01-06] MEDS ORDERED: MORPHINE SULFATE 4 MG/ML INJ IV ONE (15:18)
[2018-01-06] MEDS ORDERED: oxyCODONE/ACETAMINOPHEN 5 MG/325 MG TAB PO PRN (15:30)
[2018-01-06] MEDS ORDERED: OXYTOCIN 30 UNITS-500ML PREMIX 500 ML IV ONE ×2 (15:30)
[2018-01-06] MEDS ORDERED: SIMETHICONE 80 MG CHEWABLE TAB PO PRN (15:30)
[2018-01-06] MEDS ORDERED: ZOLPIDEM TARTRATE 5 MG TAB PO PRN (15:30)
[2018-01-06] MEDS ORDERED: SODIUM CHLORIDE 0.9% FLUSH 10 ML FLUSH IV FLUSH PRN (15:30)
[2018-01-06 15:36] LABS: BILIRUBIN, URINE NEG (NEG); BLOOD, URINE NEG (NEG); GLUCOSE,URINE NEG (NEG); KETONE, URINE NEG (NEG); MUCUS URINE FEW /lpf (OCC); NITRITE,URINE NEG (NEG); PH, URINE 6.5 (5.0-8.5); SQUAMOUS EPITHELIAL CELL URINE 1 /hpf (0-5); URINE COLOR YELLOW (YELLW/STRAW); URINE LEUKOCYTE ESTERASE NEG (NEG)
[2018-01-06] MEDS ORDERED: EPIDURAL-DO NOT ADMINISTER ANTICOAGULANTS PRN (17:00)
[2018-01-06] MEDS ORDERED: EPIDURAL-DIPHENHYDRAMINE HCL 50 MG/ML VIAL IV PUSH PRN (17:00)
[2018-01-06] MEDS ORDERED: EPIDURAL-NO SYSTEMIC NARCOTICS PRN (17:00)
[2018-01-06] MEDS ORDERED: EPIDURAL-NALOXONE HCL 0.4 MG/ML AMP IV PUSH PRN (17:00)
[2018-01-06] MEDS ORDERED: EPIDURAL-DIPHENHYDRAMINE HCL 50 MG CAP PO PRN (17:00)
[2018-01-06] MEDS ORDERED: KETOROLAC TROMETHAMINE 30 MG/ML (IVP) VIAL IV PUSH PRN (17:45)
[2018-01-06] MEDS ORDERED: LACTATED RINGER'S 1000 ML INJ 1,000 ML IV SCH (20:21)
[2018-01-06] MEDS ORDERED: OXYTOCIN 30 UNITS-500ML PREMIX 500 ML IV PRN (20:30)
[2018-01-06] MEDS: oxyCODONE/ACETAMINOPHEN 5 MG/325 MG TAB PO PRN (22:10)
[2018-01-07] MEDS: oxyCODONE/ACETAMINOPHEN 5 MG/325 MG TAB PO PRN ×4 (02:49→20:25)
[2018-01-07] MEDS: IBUPROFEN 600 MG TAB PO PRN ×3 (02:53→13:27)
[2018-01-07 05:58] LABS: AUTOMATED NEUTROPHIL # 14.4 TH/MM3 (1.8-7.7); BASOPHIL % 0.2 % (0.0-2.0); EOSINOPHIL # 0.2 TH/MM3 (0-0.4); EOSINOPHIL % 0.9 % (0.0-4.0); LYMPH % 8.5 % (9.0-44.0); LYMPHOCYTE # 1.5 TH/MM3 (1.0-4.8); MEAN CELL VOLUME 66.9 FL (80.0-100.0); MEAN CORPUSCULAR HEMOGLOBIN 20.6 PG (27.0-34.0); MEAN CORPUSCULAR HGB CONC 30.7 % (32.0-36.0); MEAN PLATELET VOLUME 8.7 FL (7.0-11.0); MONO % 7.7 % (0.0-8.0); MONOCYTE # 1.3 TH/MM3 (0-0.9); NEUT % 82.7 % (16.0-70.0); PLATELET COUNT 315 TH/MM3 (150-450); RED BLOOD COUNT 3.28 MIL/MM3 (4.00-5.30); RED CELL DISTRIBUTION WIDTH 20.9 % (11.6-17.2); WHITE BLOOD COUNT 17.4 TH/MM3 (4.0-11.0)
[2018-01-07 06:02] LABS: HEMOGLOBIN 6.7 GM/DL (11.6-15.3)
[2018-01-07 06:44] LABS: HEMATOCRIT 22.7 % (35.0-46.0); HEMOGLOBIN 7.1 GM/DL (11.6-15.3)
[2018-01-07] MEDS ORDERED: IBUP-232 PO (08:03)
[2018-01-07] MEDS ORDERED: OXYC1TAB63 PO (08:03)
--- NOTE | 2018-01-07 08:16 | MP ---
cc: Ashlee Clemens MD DATE OF OPERATION: 01/06/2018 PREOPERATIVE DIAGNOSIS: 1. Intrauterine 39+ weeks. 2. Breech. POSTOPERATIVE DIAGNOSIS: 1. Intrauterine 39+ weeks. 2. Breech. PROCEDURE PERFORMED: Primary low transverse section. ANESTHESIA: Spinal. SURGEON: Ashlee Clemens MD FINDINGS: Normal uterus, normal tubes, normal ovaries. Ovaries were slightly on the small side. Viable male , Apgars 8 and 9, weight 7 pounds 8 ounces. Easy delivery of a breech baby. COMPLICATIONS: None. COUNTS: Correct. ESTIMATED BLOOD LOSS: 600 mL FLUIDS: Crystalloids. Placenta to the garbage because she traveled and could not donate. INDICATIONS FOR PROCEDURE: The patient has been breech. We discussed a primary . She came to the labor room and had an ultrasound on the labor floor. The baby was indeed still breech and took her to the operating room. PROCEDURE IN DETAIL: Under an adequate level of anesthesia, she was prepped and draped for abdominal surgery. A Pfannenstiel incision was made and carried down to the fascia. The fascia was taken off the rectus muscle by blunt and sharp dissection. The rectus muscles were spread bluntly and the peritoneum was entered under direct vision without difficulty. The incision was extended with care to avoid the urinary bladder. A bladder blade was placed and a bladder flap created in the usual fashion. The uterine incision was made in a transverse manner along the lower uterine segment which was not well-developed. It was taken down in the midline until the intrauterine cavity was entered. A large amount of clear fluid was noted. The breech was grasped and delivered without difficulty. The legs were delivered and the thorax was delivered. The arms were reduced bilaterally without difficulty. With gentle fundal pressure the vertex was delivered without difficulty and the hypopharynx and nasopharynx were suctioned. The cord doubly clamped and cut and the infant handed to the resuscitation team present. The placenta was delivered manually. The uterus was curettaged twice with a wet lap and irrigated with a large amount of fluid. The uterine incision was then repaired with 2-0 Vicryl in a running locking fashion, with the second layer imbricating the first. Hemostasis was excellent. The cul-de-sac and gutters were cleaned of blood and debris. The uterus was delivered back into the abdomen. The rectus muscles were reapproximated with 0 Vicryl in interrupted fashion. The fascia was repaired from lateral to midline with 0 Vicryl and the subcu was repaired with 3-0 Vicryl. The skin was repaired with a 4-0 Vicryl in a subcuticular manner. The wound was sterilely dressed. She tolerated the procedure well and went to the recovery room in satisfactory condition. R. Tay Clemens MD RJV/TL , 03:11 PM , 03:35 PM
[2018-01-07] MEDS: IRON SUCROSE INJ 200 MG in SODIUM CHLORIDE 0.9% INJ 100 ML IV SCH (10:08)
--- NOTE | 2018-01-07 13:53 | HHI.OB ---
Subjective Post Operative Day: 1 Objective Result Diagram: 01/07/18 0620 Objective Remarks GENERAL: Well-nourished, well-developed patient. CARDIOVASCULAR: Regular rate and rhythm without murmurs, gallops, or rubs. RESPIRATORY: Breath sounds equal bilaterally. No accessory muscle use. ABDOMEN/GI: Abdomen soft, non-tender, bowel sounds present. Incision: Clean, dry and intact. Fundus: Firm, non-tender at umbilicus. GENITOURINARY: Light to moderate bleeding. EXTREMITIES: No cyanosis or edema, non-tender, without signs of DVT. Medications and IVs Current Medications Medications (Trade) Dose Ordered Sig/Renzo Route Start Time Stop Time Status Last Admin Lactated Ringer's 1,000 ml @ 100 mls/hr Q10H IV 01/06/18 20:21 01/07/18 16:20 Oxytocin 500 ml @ 100 mls/hr UNSCH X1 PRN IV 01/06/18 20:30 01/07/18 20:29 (NS Flush) 2 ml BID IV FLUSH 01/06/18 21:00 (NS Flush) 2 ml UNSCH PRN IV FLUSH 01/06/18 15:30 (Mylicon Chew) 80 mg QID PRN PO 01/06/18 15:30 (Motrin) 600 mg Q6H PRN PO 01/06/18 15:30 01/07/18 13:27 (Nicky-Colace) 2 tab Q12H PRN PO 01/06/18 15:30 (Ambien) 5 mg HS PRN PO 01/06/18 15:30 (M-M-R Ii Inj) 0.5 ml ONCE ONCE SQ 01/07/18 16:00 01/07/18 16:01 (Boostrix Inj) 0.5 ml ONCE ONCE IM 01/07/18 16:00 01/07/18 16:01 (Zofran Inj) 4 mg Q6H PRN IV PUSH 01/06/18 15:30 (Percocet 5-325 Mg) 1 tab Q4H PRN PO 01/06/18 15:30 (Percocet 5-325 Mg) 2 tab Q4H PRN PO 01/06/18 15:30 01/07/18 11:48 ([facility] NO SYSTEMIC NARCOTICS TO BE GIVEN FO... UNSCH PRN .XX 01/06/18 17:00 01/07/18 16:59 (Narcan Inj) 0.4 mg UNSCH PRN IV PUSH 01/06/18 17:00 01/07/18 16:59 (Benadryl Inj) 25 mg Q6H PRN IV PUSH 01/06/18 17:00 01/07/18 16:59 (Benadryl) 50 mg Q6H PRN PO 01/06/18 17:00 01/07/18 16:59 ([facility] ALL NURSING DEPARTMENTS UNSCH PRN .XX 01/06/18 17:00 01/07/18 16:59 (Toradol Inj) 15 mg UNSCH X1 PRN IV PUSH 01/06/18 17:45 01/07/18 17:44 01/06/18 17:56 Iron Sucrose 200 mg/Sodium Chloride 110 ml @ 110 mls/hr Q24H IV 01/07/18 11:00 01/09/18 11:59 01/07/18 10:08 Assessment/Plan Problem List: (1) Anemia ICD Codes: D64.9 - Anemia, unspecified (2) Delivery by section for breech presentation ICD Codes: O32.1XX0 - Maternal care for breech presentation, not applicable or unspecified Assessment and Plan POD #1 primary c section for breech pt doing well pain well managed with oral gifford medication hgb 7.1, VSS, Venofer ordered pt denies SOB, dizziness, chest pain with ambulation pt breast and bottle feeding routine care Discharge Planning consider dc in 2 days' f/u with anemia Barbara Whitehead January 07, 2018 13:53
[2018-01-07] MEDS ORDERED: DIPHTH/TETANUS/ACEL PERTUSSIS (BOOSTER) 0.5 ML VIAL/PFS IM ONE (16:00)
[2018-01-07] MEDS ORDERED: MEASLES, MUMPS, RUBELLA VACCINE 0.5 ML VIAL SQ ONE (16:00)
[2018-01-07] MEDS: ONDANSETRON HCL 4 MG/2 ML VIAL IV PUSH PRN (18:30)
[2018-01-07] MEDS ORDERED: KETOROLAC TROMETHAMINE 30 MG/ML (IVP) VIAL IV PUSH ONE (19:00)
[2018-01-07 20:41] VITALS: BP 120/69; PULSE 74; RESP 19; TEMP 97.9
[2018-01-08] VITALS (7 sets, daily range): BP systolic 76–126; BP diastolic 68–75; PULSE 81–97; RESP 16–20; TEMP 97.5–98.4; O2SAT 97–100
[2018-01-08] MEDS: ONDANSETRON HCL 4 MG/2 ML VIAL IV PUSH PRN ×3 (00:01→22:57)
[2018-01-08] MEDS: IBUPROFEN 600 MG TAB PO PRN ×4 (00:03→22:26)
[2018-01-08] MEDS: oxyCODONE/ACETAMINOPHEN 5 MG/325 MG TAB PO PRN ×6 (00:03→22:26)
[2018-01-08] MEDS: DOCUSATE SODIUM 50 MG/SENNA 8.6 MG TAB PO PRN ×3 (00:04→22:26)
[2018-01-08 06:01] LABS: AUTOMATED NEUTROPHIL # 12.6 TH/MM3 (1.8-7.7); BASOPHIL % 0.3 % (0.0-2.0); EOSINOPHIL # 0.2 TH/MM3 (0-0.4); EOSINOPHIL % 1.7 % (0.0-4.0); HEMATOCRIT 22.4 % (35.0-46.0); LYMPH % 5.1 % (9.0-44.0); LYMPHOCYTE # 0.7 TH/MM3 (1.0-4.8); MEAN CELL VOLUME 67.5 FL (80.0-100.0); MEAN CORPUSCULAR HEMOGLOBIN 20.4 PG (27.0-34.0); MEAN CORPUSCULAR HGB CONC 30.2 % (32.0-36.0); MEAN PLATELET VOLUME 8.9 FL (7.0-11.0); MONO % 4.3 % (0.0-8.0); MONOCYTE # 0.6 TH/MM3 (0-0.9); NEUT % 88.6 % (16.0-70.0); PLATELET COUNT 314 TH/MM3 (150-450); RED BLOOD COUNT 3.31 MIL/MM3 (4.00-5.30); WHITE BLOOD COUNT 14.2 TH/MM3 (4.0-11.0)
[2018-01-08 06:20] LABS: HEMOGLOBIN 6.7 GM/DL (11.6-15.3)
[2018-01-08] MEDS ORDERED: ACETAMINOPHEN 325 MG TAB PO SCH (08:30)
[2018-01-08] MEDS ORDERED: diphenhydrAMINE HCL 50 MG/ML VIAL IV PUSH SCH (08:30)
[2018-01-08] MEDS ORDERED: MORPHINE SULFATE 4 MG/ML INJ IV PUSH ONE (09:00)
--- NOTE | 2018-01-08 09:21 | HHI.OB ---
Subjective Post Operative Day: 2 Objective Vitals/I&O Vital Signs Date Time Temp Pulse Resp B/P (MAP) Pulse Ox O2 Delivery O2 Flow Rate FiO2 01/07/18 20:41 97.9 74 19 120/69 (86) Result Diagram: 01/08/18 1912 Objective Remarks GENERAL: Well-nourished, well-developed patient. CARDIOVASCULAR: Regular rate and rhythm without murmurs, gallops, or rubs. RESPIRATORY: Breath sounds equal bilaterally. No accessory muscle use. ABDOMEN/GI: Abdomen soft, non-tender, bowel sounds present. Incision: Clean, dry and intact. Fundus: Firm, non-tender at umbilicus. GENITOURINARY: Light to moderate bleeding. EXTREMITIES: No cyanosis or edema, non-tender, without signs of DVT. Medications and IVs Current Medications Medications (Trade) Dose Ordered Sig/Renzo Route Start Time Stop Time Status Last Admin (NS Flush) 2 ml BID IV FLUSH 01/06/18 21:00 (NS Flush) 2 ml UNSCH PRN IV FLUSH 01/06/18 15:30 01/08/18 00:02 (Mylicon Chew) 80 mg QID PRN PO 01/06/18 15:30 (Motrin) 600 mg Q6H PRN PO 01/06/18 15:30 01/08/18 08:44 (Nicky-Colace) 2 tab Q12H PRN PO 01/06/18 15:30 01/08/18 08:43 (Ambien) 5 mg HS PRN PO 01/06/18 15:30 (Zofran Inj) 4 mg Q6H PRN IV PUSH 01/06/18 15:30 01/08/18 00:04 (Percocet 5-325 Mg) 1 tab Q4H PRN PO 01/06/18 15:30 (Percocet 5-325 Mg) 2 tab Q4H PRN PO 01/06/18 15:30 01/08/18 08:45 Iron Sucrose 200 mg/Sodium Chloride 110 ml @ 110 mls/hr Q24H IV 01/07/18 11:00 01/09/18 11:59 01/07/18 10:08 (Tylenol) 650 mg TECHNICAL DOCUMENT WRITER PO 01/08/18 08:30 (Benadryl Inj) 25 mg TECHNICAL DOCUMENT WRITER IV PUSH 01/08/18 08:30 Assessment/Plan Problem List: (1) Anemia ICD Codes: D64.9 - Anemia, unspecified (2) Delivery by section for breech presentation ICD Codes: O32.1XX0 - Maternal care for breech presentation, not applicable or unspecified Assessment and Plan POD #2primary c section for breech pt looks pale and worn out c/o headache that started his am, pain medication due and additional morphine ordered if needed pain from surgery is well managed with oral gifford medication hgb 6.7, c/o dizziness with ambulation, VSS, we will transfuse with 2 units of PRBC's today baby to nursery so pt can rest routine care Discharge Planning consider dc tomorrow if feeling better f/u with anemia pp Attending Attestation seen with Barbara Borjas January 08, 2018 09:21
[2018-01-08] MEDS: IRON SUCROSE INJ 200 MG in SODIUM CHLORIDE 0.9% INJ 100 ML IV SCH (10:04)
[2018-01-08] MEDS: SODIUM CHLORIDE 0.9% FLUSH 10 ML FLUSH IV FLUSH SCH (22:57)
[2018-01-09] MEDS: oxyCODONE/ACETAMINOPHEN 5 MG/325 MG TAB PO PRN (05:11)
[2018-01-09] MEDS: IBUPROFEN 600 MG TAB PO PRN (05:12)
[2018-01-09 06:01] LABS: HEMATOCRIT 28.5 % (35.0-46.0); HEMOGLOBIN 8.9 GM/DL (11.6-15.3); MEAN CELL VOLUME 70.1 FL (80.0-100.0); MEAN CORPUSCULAR HEMOGLOBIN 21.9 PG (27.0-34.0); MEAN CORPUSCULAR HGB CONC 31.3 % (32.0-36.0); MEAN PLATELET VOLUME 8.9 FL (7.0-11.0); PLATELET COUNT 371 TH/MM3 (150-450); RED BLOOD COUNT 4.07 MIL/MM3 (4.00-5.30); RED CELL DISTRIBUTION WIDTH 21.6 % (11.6-17.2); WHITE BLOOD COUNT 12.1 TH/MM3 (4.0-11.0)
[2018-01-09] MEDS ORDERED: ASPIRIN 325 MG/CAFFEINE 40 MG/BUTALBITAL 50 MG CAP PO PRN (08:15)
--- NOTE | 2018-01-09 08:52 | HHI.OB ---
Subjective Post Operative Day: 3 Objective Vitals/I&O Vital Signs Date Time Temp Pulse Resp B/P (MAP) Pulse Ox O2 Delivery O2 Flow Rate FiO2 01/08/18 20:33 97.5 81 18 126/71 (89) 01/08/18 17:55 98.0 85 18 119/68 100 01/08/18 15:19 98.4 90 18 76/ 97 01/08/18 15:04 98.2 97 20 111/73 99 01/08/18 14:41 98.2 97 20 111/73 (86) 99 01/08/18 11:30 98.3 82 18 115/72 98 01/08/18 11:13 97.9 82 16 126/75 99 Result Diagram: 01/09/18 0501 Objective Remarks GENERAL: Well-nourished, well-developed patient. CARDIOVASCULAR: Regular rate and rhythm without murmurs, gallops, or rubs. RESPIRATORY: Breath sounds equal bilaterally. No accessory muscle use. ABDOMEN/GI: Abdomen soft, non-tender, bowel sounds present. Incision: Clean, dry and intact. Fundus: Firm, non-tender at umbilicus. GENITOURINARY: Light to moderate bleeding. EXTREMITIES: No cyanosis or edema, non-tender, without signs of DVT. Medications and IVs Current Medications Medications (Trade) Dose Ordered Sig/Renzo Route Start Time Stop Time Status Last Admin (NS Flush) 2 ml BID IV FLUSH 01/06/18 21:00 01/08/18 22:57 (NS Flush) 2 ml UNSCH PRN IV FLUSH 01/06/18 15:30 01/08/18 00:02 (Mylicon Chew) 80 mg QID PRN PO 01/06/18 15:30 (Motrin) 600 mg Q6H PRN PO 01/06/18 15:30 01/09/18 05:12 (Nicky-Colace) 2 tab Q12H PRN PO 01/06/18 15:30 01/08/18 22:26 (Ambien) 5 mg HS PRN PO 01/06/18 15:30 (Zofran Inj) 4 mg Q6H PRN IV PUSH 01/06/18 15:30 01/08/18 22:57 (Percocet 5-325 Mg) 1 tab Q4H PRN PO 01/06/18 15:30 (Percocet 5-325 Mg) 2 tab Q4H PRN PO 01/06/18 15:30 01/09/18 05:11 Iron Sucrose 200 mg/Sodium Chloride 110 ml @ 110 mls/hr Q24H IV 01/07/18 11:00 01/09/18 11:59 01/07/18 10:08 (Tylenol) 650 mg FARROWING MANAGER PO 01/08/18 08:30 (Benadryl Inj) 25 mg FARROWING MANAGER IV PUSH 01/08/18 08:30 01/08/18 10:03 (Fiorinal 325-40-50) 1 cap Q4H PRN PO 01/09/18 08:15 Assessment/Plan Problem List: (1) Anemia ICD Codes: D64.9 - Anemia, unspecified (2) Delivery by section for breech presentation ICD Codes: O32.1XX0 - Maternal care for breech presentation, not applicable or unspecified Assessment and Plan POD #3 primary c section for breech pt's color has improved but overall still appears worn out with little energy pt still having a headache, she has had migraines in the past but feels this is different "maybe it;s a tension headache", will try fiorinal and get anesthesia consult hgb 8.9 from 6.7 after transfusing 2 units, still having dizziness with ambulation pain from surgery is well managed with oral gifford medication baby to nursery due to mom having little energy routine care Discharge Planning consider dc tomorrow if feeling better f/u with anemia pp Attending Attestation seen wit Barbara Santos January 09, 2018 08:52
--- NOTE | 2018-01-09 08:53 | HHI.DCPOC ---
Discharge Care Plan Diagnosis: (1) Anemia (2) Delivery by section for breech presentation Your Health Problems Are: delivery Report Symptoms to Your Doctor -Temperature above 100.5 degrees -Redness, of incision or excessive or foul smelling drainage -Unusual pain or calf pain -Increased vaginal bleeding -Painful or difficulty urinating -Feelings of extreme sadness or anxiety after 2 weeks Goals to Promote Your Health * To prevent worsening of your condition and complications * To maintain your health at the optimal level Directions to Meet Your Goals Take your medications as prescribed Follow your dietary instruction Follow activity as directed Ensure plenty of rest for recovery Drink fluids for hydration Keep your appointments as scheduled Take your immunizations and boosters as scheduled If your symptoms worsen call your PCP, if no PCP go to Urgent Care Center or Emergency Room Smoking is Dangerous to Your Health. Avoid second hand smoke Call the 24-hour crisis hotline for domestic abuse at Barbara Norton January 09, 2018 08:53
[2018-01-09] MEDS: SODIUM CHLORIDE 0.9% FLUSH 10 ML FLUSH IV FLUSH SCH (09:25)
[2018-01-09] MEDS: IRON SUCROSE INJ 200 MG in SODIUM CHLORIDE 0.9% INJ 100 ML IV SCH (11:06)
== END 2018-01-09 14:33 | disposition home or self-care (01) | DRG 766 ==
LOC: H2EB 01-06 11:35 → H1EA 01-06 16:20
PROVIDERS: ADMIT Obstetrics & Gynecology; ATTEND Obstetrics & Gynecology
PROC: 10D00Z1 Extraction of Products of Conception, Low, Open Approach (ICD-10-PCS; principal; 2018-01-06)
PROC: 30233N1 Transfusion of Nonautologous Red Blood Cells into Peripheral Vein, Percutaneous Approach (ICD-10-PCS; 2018-01-08)
DX: O32.1XX0 Maternal care for breech presentation, not applicable or unspecified (principal); O99.02 Anemia complicating childbirth; D64.9 Anemia, unspecified; R51 Headache
CPT/HCPCS: 36430; 59025; 80307; 81001; 85014; 85018; 85025; 85027; 86850; 86900; 86901; 86920; J0131; J0690; J1200; J1756; J1885; J2270; J2274; J2405; J2590; P9016